=== PATIENT | female | born 1945 | race Caucasian/White ===

== ENCOUNTER 2023-02-26 10:51 | Inpatient (IN) | payer MEDICARE, OTHER ==
[2023-02-26] MEDS ORDERED: Take Home: Acetaminophen/HYDROcodone 325-5 MG, 5 Tab Pack PO ONE (14:39)
[2023-02-26] MEDS ORDERED: Ondansetron 4 MG/2 ML SDV IVPUSH PRN (16:50)
[2023-02-26] MEDS ORDERED: Polyethylene Glycol 3350 Powder 17 GM Packet PO PRN (16:50)
[2023-02-26] MEDS ORDERED: Magnesium Hydroxide 400 MG/5 ML Susp 30 ML Cup PO PRN (16:50)
[2023-02-26] MEDS ORDERED: Albuterol/Ipratropium 3.0-0.5 MG/3 ML Neb Soln NEB PRN (16:50)
[2023-02-26] MEDS ORDERED: Naloxone 2 MG/2 ML Syringe IVPUSH PRN (16:50)
[2023-02-26] MEDS ORDERED: Bisacodyl 5 MG Tab PO PRN (16:50)
[2023-02-26] MEDS ORDERED: Acetaminophen 325 MG Tab PO PRN (16:50)
[2023-02-26] MEDS ORDERED: Sodium Chloride 0.9% 10 ML Syringe FLUSH PRN (16:50)
[2023-02-26] MEDS ORDERED: traMADol 50 MG Tab PO PRN (17:43)
[2023-02-26] MEDS ORDERED: Amitriptyline 25 MG Tab PO PRN (17:43)
[2023-02-26 17:46] LABS: BILIRUBIN,URINE NEGATIVE (NEGATIVE); COLOR,URINE YELLOW (YELLOW); GLUCOSE,URINE NEGATIVE (NEGATIVE); KETONES,URINE NEGATIVE (NEGATIVE); LEUKOCYTE ESTERASE,URINE LARGE (NEGATIVE); NITRITE,URINE NEGATIVE (NEGATIVE); OCCULT BLOOD,URINE TRACE-INTACT (NEGATIVE); PROTEIN,URINE 30 (NEGATIVE); UROBILINOGEN,URINE 0.2 mg/dL (0.2-1.0)
[2023-02-26] MEDS: Acetaminophen/oxyCODONE 325-5 MG Tab PO PRN ×2 (17:48→22:26)
[2023-02-26 17:49] LABS: APPEARANCE,URINE SLIGHTLY CLOUDY (CLEAR)
[2023-02-26 17:54] LABS: BACTERIA,URINE FEW /HPF (0-FEW/HPF); EPITHELIAL CELLS,URINE FEW /HPF (NOT SEEN); RBC,URINE 0-5 /HPF (0-5); WBC,URINE 30-40 /HPF (0-5/HPF)
[2023-02-26] MEDS ORDERED: Non-Formulary Medication 1 Each (Lansoprazole [Prevacid] 30 MG Capsule.Dr) PO SCH (18:00)
[2023-02-26] MEDS: Pantoprazole 40 MG Tab.CR PO SCH (20:53)
[2023-02-26] MEDS: Doxycycline Monohydrate 100 MG Cap PO SCH (20:53)
[2023-02-26] MEDS: Cyclobenzaprine 10 MG Tab PO PRN (22:26)
[2023-02-27] MEDS: Acetaminophen/oxyCODONE 325-5 MG Tab PO PRN ×4 (02:25→23:27)
[2023-02-27 06:11] LABS: BASOPHILS PERCENT AUTO 0.4 % (0.0-1.0); EOSINOPHILS PERCENT AUTO 7.2 % (1.0-3.0); HEMATOCRIT 32.4 % (37.0-47.0); HEMOGLOBIN 10.4 g/dL (12.0-16.0); LYMPHOCYTES PERCENT AUTO 24.9 % (20.5-50.1); MEAN CORPUSCULAR HEMOGLOBIN 28.7 pg (27.0-34.0); MEAN CORPUSCULAR HGB CONC 32.1 g/dL (33.0-35.0); MEAN CORPUSCULAR VOLUME 89.5 fL (80-100); MONOCYTES PERCENT AUTO 15.7 % (2-8); NEUTROPHILS PERCENT AUTO 51.8 % (42.2-75.2); PLATELET COUNT,PLT 372 10^3/uL (150-450); RED BLOOD CELL COUNT 3.62 10^6/uL (4.2-5.4); WHITE BLOOD CELL COUNT,WBC 6.8 10^3/uL (5.0-10.0)
[2023-02-27 06:19] LABS: ANION GAP 11.4 mEq/L (7-13); CALCIUM 8.9 mg/dL (8.5-10.1); CREATININE 1.51 mg/dL (0.55-1.02); EST CRCL DRUG DOSING (CG) 25.07 mL/min; MAGNESIUM 1.9 mg/dL (1.8-2.4); POTASSIUM,K 4.4 mmol/L (3.5-5.1)
[2023-02-27] MEDS: Pantoprazole 40 MG Tab.CR PO SCH ×2 (07:52→17:23)
[2023-02-27] MEDS: Venlafaxine 150 MG Cap.ER PO SCH (12:36)
[2023-02-27] MEDS: Rosuvastatin 10 MG Tab PO SCH (12:36)
[2023-02-27] MEDS: Metoprolol Succinate 25 MG Tab.ER PO SCH (12:36)
[2023-02-27] MEDS: Enoxaparin 30 MG/0.3 ML Syringe SUBCUT SCH (12:37)
[2023-02-27] MEDS: Doxycycline Monohydrate 100 MG Cap PO SCH ×2 (12:43→20:28)
[2023-02-27] MEDS: Cyclobenzaprine 10 MG Tab PO PRN (23:26)
[2023-02-28] MEDS: Doxycycline Monohydrate 100 MG Cap PO SCH (08:12)
[2023-02-28] MEDS: Pantoprazole 40 MG Tab.CR PO SCH (08:12)
[2023-02-28] MEDS: Venlafaxine 150 MG Cap.ER PO SCH (08:12)
[2023-02-28] MEDS: Rosuvastatin 10 MG Tab PO SCH (08:13)
[2023-02-28] MEDS: Cyclobenzaprine 10 MG Tab PO PRN ×2 (08:13→15:14)
[2023-02-28] MEDS: Metoprolol Succinate 25 MG Tab.ER PO SCH (08:13)
[2023-02-28] MEDS: Enoxaparin 30 MG/0.3 ML Syringe SUBCUT SCH (08:15)
[2023-02-28] MEDS: Acetaminophen/oxyCODONE 325-5 MG Tab PO PRN (13:07)
[2023-02-28] MEDS: HYDROmorphone 0.5 MG/0.5 ML Syringe IVPUSH PRN ×2 (13:08→15:15)
== END 2023-02-28 15:46 | DRG 560 ==
LOC: DL.ED 10:51 → UNDOADMOB 15:57 → DL.MS 15:57 → INTOOBSV 02-28 10:35 → OBSVTOIN 02-28 10:35 → UNDODISIN 02-28 15:46
PROVIDERS: ADMIT Internal Medicine; ATTEND Internal Medicine
DX: T84.020A Dislocation of internal right hip prosthesis, initial encounter (principal); N17.9 Acute kidney failure, unspecified; M25.871 Other specified joint disorders, right ankle and foot; S90.932A Unspecified superficial injury of left great toe, initial encounter; S90.935A Unspecified superficial injury of left lesser toe(s), initial encounter; I12.9 Hypertensive chronic kidney disease with stage 1 through stage 4 chronic kidney disease, or unspecified chronic kidney disease; N18.30 Chronic kidney disease, stage 3 unspecified; Z66 Do not resuscitate; E78.5 Hyperlipidemia, unspecified; K21.9 Gastro-esophageal reflux disease without esophagitis; M54.9 Dorsalgia, unspecified; G89.29 Other chronic pain; F32.A Depression, unspecified; M21.612 Bunion of left foot; M21.611 Bunion of right foot; R26.9 Unspecified abnormalities of gait and mobility; Z79.899 Other long term (current) drug therapy; Z88.5 Allergy status to narcotic agent; Y83.1 Surgical operation with implant of artificial internal device as the cause of abnormal reaction of the patient, or of later complication, without mention of misadventure at the time of the procedure; Z79.2 Long term (current) use of antibiotics; X58.XXXA Exposure to other specified factors, initial encounter
CPT/HCPCS: 36415; 51702; 80048; 81001; 83735; 85025; 99222; 99232; 99283; 99284; A9270-GY; J1170; J1650